=== PATIENT | female | born 1955 | race Caucasian/White ===

== ENCOUNTER 2018-03-16 15:01 | Emergency (ER) | payer OTHER ==
[~2018-03-16] VITALS: Ht 167.6 cm; Wt 63.9 kg
[2018-03-16 15:07] VITALS: BP 168/78
[2018-03-16] MEDS ORDERED: FLUORESCEIN OPHTHALMIC 1 MG STRIP RIGHTEYE ONE (15:30)
[2018-03-16] MEDS ORDERED: PROPARACAINE OPHTH 0.5%, 15ML RIGHTEYE ONE (15:30)
[2018-03-16] MEDS ORDERED: PROPARACAINE OPHTH 0.5%, 15ML ONE (15:34)
[2018-03-16] MEDS ORDERED: FLUORESCEIN OPHTHALMIC 1 MG STRIP ONE (15:34)
== END 2018-03-16 16:07 | disposition home or self-care (01) ==
LOC: ED 16:00
DX: H10.021 Other mucopurulent conjunctivitis, right eye (principal)
CPT/HCPCS: 99283